=== PATIENT | female | born 1950 | race Caucasian/White ===

== ENCOUNTER → 2025-01-28 | Outpatient (CLI) | payer MEDICARE ==
[2025-01-28 22:13] VITALS: PULSE 62; RESP 14
[2025-01-28 23:00] VITALS: PULSE 60; RESP 20
[2025-01-28 23:30] VITALS: PULSE 58; RESP 24
[2025-01-29] VITALS (10 sets, daily range): PULSE 50–54; RESP 20–28
== END | disposition home or self-care (01) ==
LOC: SLP 20:31
PROVIDERS: ATTEND Student in an Organized Health Care Education/Training Program
DX: G47.33 Obstructive sleep apnea (adult) (pediatric) (principal); F51.04 Psychophysiologic insomnia
CPT/HCPCS: 95810